=== PATIENT | male | born 1955 | race Hispanic/Latino ===

== ENCOUNTER → 2018-07-29 | Outpatient (CLI) | payer OTHER | END | disposition home or self-care (01) | LOC: OIH 09:49 | PROVIDERS: ATTEND Family Medicine | DX: M16.11 Unilateral primary osteoarthritis, right hip (principal); M17.11 Unilateral primary osteoarthritis, right knee | CPT/HCPCS: 73502; 73560 ==

== ENCOUNTER → 2020-10-26 | Outpatient (CLI) | payer OTHER ==
[2020-10-26 11:03] LABS: INR 1.01 (0.85-1.15)
== END | disposition home or self-care (01) ==
LOC: RAH 09:44
PROVIDERS: ATTEND Internal Medicine
DX: E04.2 Nontoxic multinodular goiter (principal); I10 Essential (primary) hypertension; E11.9 Type 2 diabetes mellitus without complications; E78.5 Hyperlipidemia, unspecified; E66.9 Obesity, unspecified; Z98.890 Other specified postprocedural states; Z79.4 Long term (current) use of insulin; Z79.01 Long term (current) use of anticoagulants; Z68.41 Body mass index [BMI] 40.0-44.9, adult
CPT/HCPCS: 10005; 10006; 36415; 76942; 85610

== ENCOUNTER → 2020-10-30 | Outpatient (CLI) | payer OTHER ==
[2020-10-30 13:59] LABS: ALBUMIN 4.2 g/dL (3.5-5.0); BILIRUBIN,TOTAL 0.6 mg/dL (0.2-1.0); POTASSIUM 3.6 mmol/L (3.5-5.1); TOTAL PROTEIN, SERUM 7.8 g/dL (6.0-8.3)
== END | disposition home or self-care (01) ==
LOC: LAB 12:44
PROVIDERS: ATTEND Internal Medicine
DX: E29.1 Testicular hypofunction (principal)
CPT/HCPCS: 36415; 80053

== ENCOUNTER → 2020-11-02 | Outpatient (CLI) | payer OTHER ==
[~2020-11-02] MED LIST: GADOTERATE MEGLUMINE 10 MMOL/20 ML VIAL IV ONE
== END | disposition home or self-care (01) ==
LOC: RAH 13:54
PROVIDERS: ATTEND Internal Medicine
DX: E29.1 Testicular hypofunction (principal); G31.9 Degenerative disease of nervous system, unspecified
CPT/HCPCS: 70553; A9575

== ENCOUNTER 2021-09-24 09:35 | Emergency (ER) | payer MEDICARE, OTHER ==
[~2021-09-24] VITALS: Ht 167.6 cm; Wt 104.3 kg
[2021-09-24 09:56] LABS: BASOPHILS % (AUTO) 0.2 % (0.0-5.0); EOSINOPHILS % (AUTO) 3.2 % (0.0-8.0); HEMATOCRIT 39.6 % (42-54); MEAN CORPUSCULAR HEMOGLOBIN 30.8 pg (27.0-33.0); MEAN CORPUSCULAR HGB CONC 33.1 g/dL (32.0-36.0); MEAN CORPUSCULAR VOLUME 93.2 fL (79-99); MONOCYTES % (AUTO) 6.3 % (3.0-13.0); NEUTROPHILS % (AUTO) 73.1 % (40.0-77.0); PLATELET COUNT (AUTO) 212 K/uL (130-400); RED BLOOD CELL COUNT(AUTO) 4.25 MIL/uL (4.50-6.20); RED CELL DISTRIBUTION WIDTH 13.9 % (11.0-15.5); WHITE BLOOD COUNT (AUTO) 8.4 K/uL (4.8-10.8)
[2021-09-24] MEDS ORDERED: 0.9%NACL 1000ML 1,000 ML IV ONE (10:00)
[2021-09-24] MEDS ORDERED: PANTOPRAZOLE 40 MG/VIAL IVP ONE (10:00)
[2021-09-24 10:03] LABS: POTASSIUM 3.7 mmol/L (3.5-5.1)
[2021-09-24 10:10] LABS: ALBUMIN 3.9 g/dL (3.5-5.0); BILIRUBIN,TOTAL 0.5 mg/dL (0.2-1.0); TOTAL PROTEIN, SERUM 7.5 g/dL (6.0-8.3)
[2021-09-24 12:03] VITALS: BP 130/66
[2021-09-24] MEDS ORDERED: TAMS-1 PO (13:00)
[2021-09-24] MEDS ORDERED: NAPR-1196 PO (13:00)
[2021-09-24] MEDS ORDERED: CEPH500B PO (13:00)
== END 2021-09-24 13:45 | disposition home or self-care (01) ==
LOC: EDH 09:35
DX: N20.0 Calculus of kidney (principal); E11.9 Type 2 diabetes mellitus without complications; I11.9 Hypertensive heart disease without heart failure; E86.0 Dehydration; J45.909 Unspecified asthma, uncomplicated; Z88.5 Allergy status to narcotic agent; Z95.1 Presence of aortocoronary bypass graft
CPT/HCPCS: 36415; 71045; 76705; 80053; 82948; 84484; 85025; 93005; 96361; 96374; 99285; C9113; J7030

== ENCOUNTER → 2021-10-26 | Outpatient (CLI) | payer OTHER ==
[~2021-10-26] MED LIST changes: +CEPH500B PO; -GADOTERATE MEGLUMINE 10 MMOL/20 ML VIAL IV ONE; +NAPR-1196 PO; +TAMS-1 PO
== END | disposition home or self-care (01) ==
LOC: RAH 09:09
PROVIDERS: ATTEND Neurological Surgery
DX: M25.78 Osteophyte, vertebrae (principal); M48.02 Spinal stenosis, cervical region
CPT/HCPCS: 72141

== ENCOUNTER 2022-02-03 04:21 | Emergency (ER) | payer OTHER ==
[~2022-02-03] VITALS: Ht 165.1 cm; Wt 106.1 kg
[2022-02-03 04:34] VITALS: BP 129/58
== END 2022-02-03 05:07 | disposition home or self-care (01) ==
LOC: EDH 04:21
DX: U07.1 COVID-19 (principal); I10 Essential (primary) hypertension; E11.9 Type 2 diabetes mellitus without complications; Z88.5 Allergy status to narcotic agent; Z95.1 Presence of aortocoronary bypass graft; Z79.1 Long term (current) use of non-steroidal anti-inflammatories (NSAID)
CPT/HCPCS: 99283; 87635; 87804 ×2; C9803

== ENCOUNTER 2022-05-24 19:56 | Emergency (ER) | payer OTHER ==
[~2022-05-24] VITALS: Ht 167.6 cm; Wt 98.9 kg
[2022-05-24 20:24] VITALS: BP 110/72
[2022-05-24] MEDS ORDERED: IBUP-2077 PO (21:22)
[2022-05-24] MEDS ORDERED: KETOROLAC 30MG VIAL (30MG/ML) IM ONE (21:30)
== END 2022-05-24 22:02 | disposition home or self-care (01) ==
LOC: EDH 19:56
DX: K08.89 Other specified disorders of teeth and supporting structures (principal); E11.9 Type 2 diabetes mellitus without complications; I10 Essential (primary) hypertension; I25.10 Atherosclerotic heart disease of native coronary artery without angina pectoris; Z95.1 Presence of aortocoronary bypass graft; Z96.651 Presence of right artificial knee joint; Z98.890 Other specified postprocedural states; Z88.5 Allergy status to narcotic agent
CPT/HCPCS: 96372; 99283; J1885

== ENCOUNTER 2022-11-24 23:57 | Observation (INO) | payer OTHER ==
[~2022-11-24] VITALS: Ht 165.1 cm; Wt 90.7 kg
[~2022-11-24 23:57] MED LIST changes: +IBUP-2077 PO
[2022-11-25] MEDS ORDERED: NITROGLYCERIN 0.4 MG SL TAB SL ONE (00:23)
[2022-11-25 00:50] LABS: BASOPHILS % (AUTO) 0.3 % (0.0-5.0); EOSINOPHILS % (AUTO) 1.8 % (0.0-8.0); HEMATOCRIT 37.1 % (42-54); LYMPHOCYTES % (AUTO) 23.5 % (21.0-51.0); MEAN CORPUSCULAR HEMOGLOBIN 30.8 pg (27.0-33.0); MEAN CORPUSCULAR HGB CONC 33.4 g/dL (32.0-36.0); MEAN CORPUSCULAR VOLUME 92.3 fL (79-99); MONOCYTES % (AUTO) 6.9 % (3.0-13.0); NEUTROPHILS % (AUTO) 67.2 % (40.0-77.0); PLATELET COUNT (AUTO) 209 K/uL (130-400); RED BLOOD CELL COUNT(AUTO) 4.02 MIL/uL (4.50-6.20); RED CELL DISTRIBUTION WIDTH 13.7 % (11.0-15.5); WHITE BLOOD COUNT (AUTO) 7.1 K/uL (4.8-10.8)
[2022-11-25 00:51] LABS: CREATININE 0.9 mg/dL (0.5-1.5); POTASSIUM 3.7 mmol/L (3.5-5.1)
[2022-11-25 00:55] LABS: ALBUMIN 3.9 g/dL (3.5-5.0); MAGNESIUM 1.7 mg/dL (1.80-2.40); TOTAL PROTEIN, SERUM 6.9 g/dL (6.0-8.3)
[2022-11-25] MEDS ORDERED: 0.9%NACL 1000ML 1,000 ML IV ONE (01:30)
[2022-11-25] MEDS ORDERED: MAGNESIUM 2GM PREMIX 50ML 50 ML IV SCH (01:30)
[2022-11-25] MEDS ORDERED: LEVO50CA4 PO (01:33)
[2022-11-25] MEDS ORDERED: LISI1TAB53 PO (01:34)
[2022-11-25] MEDS ORDERED: AMLO-258 PO (01:36)
[2022-11-25] MEDS ORDERED: CLOP75TA32 PO (01:37)
[2022-11-25] MEDS ORDERED: CARV12.511 PO (01:37)
[2022-11-25] MEDS ORDERED: ATOR40TA69 PO (01:38)
[2022-11-25] MEDS ORDERED: METF-446 PO (01:39)
[2022-11-25] MEDS ORDERED: ASPI-1197 PO (01:39)
[2022-11-25] MEDS ORDERED: ESCI20TA38 PO (01:40)
[2022-11-25] MEDS ORDERED: MAGN200T4 PO (01:41)
[2022-11-25] MEDS ORDERED: MV-M1TAB20 PO (01:41)
[2022-11-25] MEDS ORDERED: CETI-89 PO (01:42)
[2022-11-25] MEDS ORDERED: TAMS-1 PO (01:42)
[2022-11-25] MEDS ORDERED: MULT-1289 PO (01:43)
[2022-11-25] MEDS ORDERED: KRIL1CAP29 PO (01:43)
[2022-11-25] MEDS ORDERED: INSLAN SQ (01:44)
[2022-11-25] MEDS ORDERED: INSU100I43 SQ (01:45)
[2022-11-25] MEDS ORDERED: SEMA2PEN SQ (01:45)
[2022-11-25] MEDS ORDERED: TRIA10.8 NS (01:46)
[2022-11-25] MEDS ORDERED: ALBU90AE2 IH (01:47)
[2022-11-25] MEDS ORDERED: OMEP40CA21 PO (01:48)
[2022-11-25 01:54] LABS: APPEARANCE,URINE CLEAR (CLEAR); BILIRUBIN,URINE NEGATIVE (NEGATIVE); COLOR,URINE LIGHT-YELLOW (YELLOW); GLUCOSE, URINE (UA) 70 mg/dL (NEGATIVE); KETONES,URINE NEGATIVE (NEGATIVE); LEUKOCYTE ESTERASE ,URINE NEGATIVE Leu/uL (NEGATIVE); NITRATE,URINE NEGATIVE (NEGATIVE); OCCULT BLOOD,URINE NEGATIVE (NEGATIVE); PH,URINE 6.5 (5.0-8.0); PROTEIN,URINE NEGATIVE (NEGATIVE); UROBILINOGEN,URINE 0.2 mg/dL (0.2-1.0)
[2022-11-25] MEDS ORDERED: LABETALOL 20MG SYG IV PRN (02:00)
[2022-11-25] MEDS ORDERED: TEMAZEPAM 15 MG CAPSULE PO PRN (02:00)
[2022-11-25] MEDS ORDERED: ONDANSETRON 4MG INJ IVP PRN (02:00)
[2022-11-25] MEDS ORDERED: HYDRALAZINE 20MG/ML VIAL IV PRN (02:00)
[2022-11-25] MEDS ORDERED: CLONIDINE HCL 0.1 MG TABLET PO PRN (02:00)
[2022-11-25 02:02] LABS: RBC,URINE 0-1 /HPF (0-1); WBC,URINE 0-1 /HPF (0-1)
[2022-11-25] MEDS ORDERED: NITROGLYCERIN 0.4 MG SL TAB SL PRN (02:30)
[2022-11-25 06:05] LABS: HEMATOCRIT 35.3 % (42-54); MEAN CORPUSCULAR HEMOGLOBIN 31.1 pg (27.0-33.0); MEAN CORPUSCULAR HGB CONC 33.4 g/dL (32.0-36.0); MEAN CORPUSCULAR VOLUME 92.9 fL (79-99); RED BLOOD CELL COUNT(AUTO) 3.8 MIL/uL (4.50-6.20); RED CELL DISTRIBUTION WIDTH 13.9 % (11.0-15.5); WHITE BLOOD COUNT (AUTO) 6.7 K/uL (4.8-10.8)
[2022-11-25 06:31] LABS: CREATININE 0.8 mg/dL (0.5-1.5); MAGNESIUM 1.9 mg/dL (1.80-2.40); PHOSPHORUS 4.4 mg/dL (2.5-4.9); POTASSIUM 3.2 mmol/L (3.5-5.1); THYROID STIMULATING HORMONE 0.47 uIU/mL (0.36-3.74)
[2022-11-25] MEDS ORDERED: ASPIRIN 81MG CHEW TAB PO SCH ×2 (09:00→21:00)
[2022-11-25] MEDS ORDERED: PANTOPRAZOLE 40 MG TAB DR PO SCH (09:00)
[2022-11-25] MEDS ORDERED: NON-FORMULARY MEDICATION 1 EACH (Omeprazole 40 MG) PO SCH (09:00)
[2022-11-25] MEDS ORDERED: AMLODIPINE 5 MG TAB PO SCH (09:00)
[2022-11-25] MEDS ORDERED: NON-FORMULARY MEDICATION 1 EACH (Amlodipine Besylate 10 MG) PO SCH (09:00)
[2022-11-25] MEDS ORDERED: ENOXAPARIN SODIUM 30 MG/0.3 ML SQ SCH (09:00)
[2022-11-25] MEDS ORDERED: NON-FORMULARY MEDICATION 1 EACH (Levothyroxine Sodium (Levothyroxine) 50 MCG) PO SCH (09:00)
[2022-11-25] MEDS ORDERED: TAMSULOSIN HCL 0.4 MG CAP.ER.24H PO SCH (09:00)
[2022-11-25] MEDS ORDERED: FAMOTIDINE 20MG TAB PO SCH (09:00)
[2022-11-25] MEDS ORDERED: NON-FORMULARY MEDICATION 1 EACH (Lisinopril/Hydrochlorothiazide (Lisinopril-Hctz 20-25 mg PO SCH (09:00)
[2022-11-25] MEDS ORDERED: CARVEDILOL 12.5 MG TABLET PO SCH (09:00)
[2022-11-25 12:00] VITALS: BP 133/66
[2022-11-25] MEDS ORDERED: INSULIN REGULAR HUMAN SQ SCH (14:00)
[2022-11-25 16:00] VITALS: BP 150/60
[2022-11-25] MEDS ORDERED: SUCRALFATE 1 GM TABLET PO SCH (16:30)
[2022-11-25] MEDS ORDERED: KCL 20 MEQ ERTAB PO ONE (19:00)
[2022-11-25] MEDS ORDERED: SUCR1TAB PO (19:07)
[2022-11-25] MEDS ORDERED: ATORVASTATIN 40 MG TABLET PO SCH (21:00)
[2022-11-25] MEDS ORDERED: INSULIN GLARGINE 100 UNITS/ML 10 ML VIAL SQ SCH (21:00)
[2022-11-25] MEDS ORDERED: SIMVASTATIN 20 MG TABLET PO SCH (21:00)
[2022-11-25] MEDS ORDERED: CLOPIDOGREL 75MG TAB PO SCH (21:00)
[2022-11-26] MEDS ORDERED: LEVOTHYROXINE 50 MCG TABLET PO SCH (06:30)
[2022-11-26] MEDS ORDERED: LISINOPRIL 40 MG TABLET PO SCH (09:00)
[2022-11-26] MEDS ORDERED: HOME MEDICATION 1 EACH PO SCH (09:00)
[2022-11-26] MEDS ORDERED: ENOXAPARIN SODIUM 40 MG/0.4 ML SYRINGE SQ SCH (09:00)
[2022-11-26] MEDS ORDERED: HYDROCHLOROTHIAZIDE 25 MG TABLET PO SCH (09:00)
== END 2022-11-25 20:05 | disposition home or self-care (01) ==
LOC: EDH 23:57 → EDHIP 11-25 01:58 → 4DH 11-25 09:06
PROVIDERS: ADMIT Internal Medicine Critical Care Medicine; ATTEND Internal Medicine Critical Care Medicine
DX: I25.110 Atherosclerotic heart disease of native coronary artery with unstable angina pectoris (principal); R06.00 Dyspnea, unspecified; I10 Essential (primary) hypertension; D64.9 Anemia, unspecified; E87.1 Hypo-osmolality and hyponatremia; E66.9 Obesity, unspecified; E11.65 Type 2 diabetes mellitus with hyperglycemia; E87.20 Acidosis, unspecified; E78.00 Pure hypercholesterolemia, unspecified; J45.909 Unspecified asthma, uncomplicated; K21.9 Gastro-esophageal reflux disease without esophagitis; N40.0 Benign prostatic hyperplasia without lower urinary tract symptoms; G47.30 Sleep apnea, unspecified; E03.9 Hypothyroidism, unspecified; Z68.33 Body mass index [BMI] 33.0-33.9, adult; Z87.891 Personal history of nicotine dependence; Z95.1 Presence of aortocoronary bypass graft; Z95.5 Presence of coronary angioplasty implant and graft; Z79.899 Other long term (current) drug therapy; Z98.890 Other specified postprocedural states; Z79.4 Long term (current) use of insulin; Z79.84 Long term (current) use of oral hypoglycemic drugs; Z79.82 Long term (current) use of aspirin
CPT/HCPCS: 96372; 96365; 96366; 99285; 84443; 82550 ×3; 83735 ×2; 84100; 83874 ×3; 84484 ×4; 80053; 83880; 85025; 85027; 85378; 83605 ×2; 81001; 36415; 71045; 93306; 93356; 93005; G0378 ×18; J3475; J1650; 80048

== ENCOUNTER → 2023-10-29 | Outpatient (CLI) | payer OTHER ==
[~2023-10-29] MED LIST changes: +ALBU90AE3 IH; +AMLO-258 PO; +ASPI-1197 PO; +ATOR40TA69 PO; +CARV12.511 PO; -CEPH500B PO; +CETI-89 PO; +CLOP75TA32 PO; +ESCI20TA38 PO; -IBUP-2077 PO; +INSLAN SQ; +INSU100I43 SQ; +KRIL1CAP29 PO; +LEVO50CA4 PO; +LISI1TAB53 PO; +MAGN200T4 PO; +METF-446 PO; +MULT-1289 PO; +MV-M1TAB20 PO; -NAPR-1196 PO; +OMEP40CA21 PO; +SEMA2PEN SQ; +SUCR1TAB PO; +TRIA10.8 NS
== END | disposition home or self-care (01) ==
LOC: RAH 10:55
PROVIDERS: ATTEND Family Medicine
DX: R06.02 Shortness of breath (principal); M47.815 Spondylosis without myelopathy or radiculopathy, thoracolumbar region; Z98.890 Other specified postprocedural states
CPT/HCPCS: 71046

== ENCOUNTER → 2023-11-19 | Outpatient (CLI) | payer OTHER | END | disposition home or self-care (01) | LOC: RAH 13:25 | PROVIDERS: ATTEND Family Medicine | DX: M19.011 Primary osteoarthritis, right shoulder (principal); M25.511 Pain in right shoulder | CPT/HCPCS: 73030 ==